=== PATIENT | female | born 2000 | race Caucasian/White ===

== ENCOUNTER 2022-03-06 21:51 | Emergency (ER) | payer SELFPAY ==
--- NOTE | 2022-03-06 22:01 | ED Abdominal Pain ---
General Stated Complaint: MENSTRUAL BLEEDING Source of Information: Patient Exam Limitations: No Limitations History of Present Illness Date Seen by Provider: Mar 06, 2022 Time Seen by Provider: 21:52 Initial Comments [id number] female with no pertinent past medical history coming in due to lower abdominal pain and vaginal bleeding. She states that mucosa is rather dry, and she was attempting to have intercourse, he was painful, afterwards had vaginal bleeding and lower abdominal pain. Has not taken anything for it as of yet. Is been going on for over an hour. LMP was 3 weeks ago. Had pain similar to this roughly a month ago and had a CT scan and was told she had "swollen lymph nodes". She states its not uncommon for her to have abdominal pain similar to this. Denies any dysuria, nausea, vomiting, diarrhea, weakness, numbness, chest pain, shortness of breath, or any other concerns Allergies and Home Medications Allergies Coded Allergies: No Known Drug Allergies (Unverified , 03/06/22) Patient Home Medication List Home Medication List Reviewed: Yes Review of Systems Review of Systems Constitutional: No fever EENTM: No Symptoms Reported Respiratory: No Symptoms Reported Cardiovascular: No Symptoms Reported Gastrointestinal: See HPI Genitourinary: See HPI Musculoskeletal: no symptoms reported Skin: no symptoms reported Psychiatric/Neurological: No Symptoms Reported Endocrine: No Symptoms Reported Hematologic/Lymphatic: No Symptoms Reported All Other Systems Reviewed Negative Unless Noted: Yes Past [id number] Hx Patient Social History Alcohol Use?: Yes Past Medical History Surgeries: No Physical Exam Vital Signs Vital Signs - First Documented 03/06/22 21:51 Pulse 77 Resp 18 B/P (MAP) 158/87 (110) Pulse Ox 99 O2 Delivery Room Air Capillary Refill : Height/Weight/BMI Height: '" Weight: lbs. oz. kg; BMI Method: General Appearance: WD/WN, no apparent distress HEENT: PERRL/EOMI, normal ENT inspection, pharynx normal Neck: non-tender, full range of motion, supple, normal inspection Respiratory: chest non-tender, lungs clear, normal breath sounds, no respiratory distress Cardiovascular: regular rate, rhythm, no edema, no murmur Gastrointestinal: normal bowel sounds, soft; No distended, No guarding, No rebound; tenderness Genital/Rectal: other (No adnexal tenderness, cervical os is closed with minimal amount of bleeding) Extremities: normal range of motion, non-tender, normal inspection, no pedal edema, no calf tenderness, normal capillary refill Back: normal inspection, no CVA tenderness, no vertebral tenderness Neurologic/Psychiatric: no motor/sensory deficits, alert, normal mood/affect Skin: normal color, warm/dry Lymphatic: no adenopathy Progress/Results/Core Measures Results/Orders Lab Results Laboratory Tests Test 03/06/22 22:00 Range/Units White Blood Count 7.1 4.3-11.0 10^3/uL Red Blood Count 4.16 3.80-5.11 10^6/uL Hemoglobin 12.3 11.5-16.0 g/dL Hematocrit 35 35-52 % Mean Corpuscular Volume 84 80-99 fL Mean Corpuscular Hemoglobin 30 25-34 pg Mean Corpuscular Hemoglobin Concent 35 32-36 g/dL Red Cell Distribution Width 12.3 10.0-14.5 % Platelet Count 251 130-400 10^3/uL Mean Platelet Volume 10.0 9.0-12.2 fL Immature Granulocyte % (Auto) 0 % Neutrophils (%) (Auto) 62 42-75 % Lymphocytes (%) (Auto) 26 12-44 % Monocytes (%) (Auto) 9 0-12 % Eosinophils (%) (Auto) 4 0-10 % Basophils (%) (Auto) 1 0-10 % Neutrophils # (Auto) 4.4 1.8-7.8 10^3/uL Lymphocytes # (Auto) 1.8 1.0-4.0 10^3/uL Monocytes # (Auto) 0.6 0.0-1.0 10^3/uL Eosinophils # (Auto) 0.3 0.0-0.3 10^3/uL Basophils # (Auto) 0.0 0.0-0.1 10^3/uL Immature Granulocyte # (Auto) 0.0 0.0-0.1 10^3/uL Urine Color YELLOW Urine Clarity CLOUDY Urine pH 7.5 5-9 Urine Specific [place] 1.020 1.016-1.022 Urine Protein NEGATIVE NEGATIVE Urine Glucose (UA) NEGATIVE NEGATIVE Urine Ketones NEGATIVE NEGATIVE Urine Nitrite NEGATIVE NEGATIVE Urine Bilirubin NEGATIVE NEGATIVE Urine Urobilinogen 0.2 < = 1.0 MG/DL Urine Leukocyte Esterase NEGATIVE NEGATIVE Urine RBC (Auto) 3+ H NEGATIVE Urine RBC >100 H /HPF Urine WBC NONE /HPF Urine Squamous Epithelial Cells 10-25 H /HPF Urine Crystals NONE /LPF Urine Bacteria NEGATIVE /HPF Urine Casts NONE /LPF Urine Mucus NEGATIVE /LPF Urine Culture Indicated NO Urine Test POSITIVE NEGATIVE Sodium Level 134 L 135-145 MMOL/L Potassium Level 4.1 3.6-5.0 MMOL/L Chloride Level 99 98-107 MMOL/L Carbon Dioxide Level 23 21-32 MMOL/L Anion Gap 12 5-14 MMOL/L Blood Urea Nitrogen 9 7-18 MG/DL Creatinine 0.67 0.60-1.30 MG/DL Estimat Glomerular Filtration Rate 127 BUN/Creatinine Ratio 13 Glucose Level 101 70-105 MG/DL Calcium Level 9.5 8.5-10.1 MG/DL Corrected Calcium 9.2 8.5-10.1 MG/DL Total Bilirubin 0.2 0.1-1.0 MG/DL Aspartate Amino Transf (AST/SGOT) 16 5-34 U/L Alanine Aminotransferase (ALT/SGPT) 12 0-55 U/L Alkaline Phosphatase 58 40-136 U/L C-Reactive Protein 0.85 H <0.50 MG/DL Total Protein 7.5 6.4-8.2 GM/DL Albumin 4.4 3.2-4.5 GM/DL Lipase 32 8-78 U/L My Orders Orders - RED KAMINSKI MD Cbc With Automated Diff (03/06/22 22:06) Comprehensive Metabolic Panel (03/06/22 22:06) Hcg,Qualitative Urine (03/06/22 22:06) Lipase (03/06/22 22:06) Ua Culture If Indicated (03/06/22 22:06) Crp Fs (03/06/22 22:06) Ed Iv/Invasive Line Start (03/06/22 22:09) Hcg,Quantitative (03/06/22 22:20) Acetaminophen Tablet (Tylenol Tablet) (03/06/22 22:30) Medications Given in ED Current Medications Medications Dose Ordered Sig/Vale Route Start Time Stop Time Status Last Admin Dose Admin Acetaminophen 1,000 mg ONCE ONCE PO 03/06/22 22:30 03/06/22 22:32 DC 03/06/22 22:35 1,000 MG Vital Signs/I&O 03/06/22 21:51 Pulse 77 Resp 18 B/P (MAP) 158/87 (110) Pulse Ox 99 O2 Delivery Room Air Progress Progress Note : Progress Note 21-year-old female with above history coming in due to vaginal bleeding and lower abdominal discomfort. ABCs were intact and vitals were stable on presentation. She has very mild suprapubic tenderness but no adnexal tendern ess. test was positive. I did a [id number] ultrasound confirming intrauterine . Hemoglobin within normal limits. On exam she does have a closed cervical os with minimal bleeding. I discussed that this is a threatened miscarriage at this time. I will order an outpatient transvaginal ultrasound for her. She lives in [place] and will be driving back home this weekend. Departure Impression Primary Impression: Threatened miscarriage Disposition: HOME, SELF-CARE Condition: Stable Departure-Patient Inst. Decision time for Depature: 22:50 Referrals: PAVEL ESTRADA DDS (PCP) Primary Care Physician Patient Instructions: Bleeding in Early ED Add. Discharge Instructions: You do look like you are early in based on ultrasound. You do need a formal ultrasound which can be done tomorrow in [place], [place]. Call the number on the form to ask when you should go in. It is possible the bleeding could increase significantly if you do continue to miscarry. If you fully saturate a large pad every hour for several hours then I would want you to come back to the ER. Take Tylenol as needed for pain. RED KAMINSKI MD Mar 06, 2022 22:01
[2022-03-06 22:10] LABS: BASOPHILS % (AUTO) 1 % (0-10); EOSINOPHILS # (AUTO) 0.3 10^3/uL (0.0-0.3); EOSINOPHILS % (AUTO) 4 % (0-10); HEMATOCRIT 35 % (35-52); HEMOGLOBIN 12.3 g/dL (11.5-16.0); LYMPHOCYTES # (AUTO) 1.8 10^3/uL (1.0-4.0); LYMPHOCYTES % (AUTO) 26 % (12-44); MEAN CORPUSCULAR HEMOGLOBIN 30 pg (25-34); MEAN CORPUSCULAR HGB CONC 35 g/dL (32-36); MEAN CORPUSCULAR VOLUME 84 fL (80-99); MONOCYTES # (AUTO) 0.6 10^3/uL (0.0-1.0); MONOCYTES % (AUTO) 9 % (0-12); NEUTROPHILS # (AUTO) 4.4 10^3/uL (1.8-7.8); NEUTROPHILS % (AUTO) 62 % (42-75); PLATELET COUNT 251 10^3/uL (130-400); WHITE BLOOD COUNT 7.1 10^3/uL (4.3-11.0)
[2022-03-06 22:13] LABS: BILIRUBIN,URINE NEGATIVE (NEGATIVE); COLOR,URINE YELLOW; GLUCOSE, URINE (UA) NEGATIVE (NEGATIVE); KETONES,URINE NEGATIVE (NEGATIVE); LEUKOCYTE ESTERASE ,URINE NEGATIVE (NEGATIVE); NITRITE,URINE NEGATIVE (NEGATIVE); PH,URINE 7.5 (5-9); PROTEIN,URINE NEGATIVE (NEGATIVE)
[2022-03-06 22:15] LABS: CLARITY,URINE CLOUDY
[2022-03-06] MEDS ORDERED: KETOROLAC 15 MG/ML VIAL IVP ONE (22:15)
[2022-03-06 22:16] LABS: BACTERIA,URINE NEGATIVE /HPF; RBC,URINE >100 /HPF
[2022-03-06 22:30] LABS: ALBUMIN 4.4 GM/DL (3.2-4.5); BILIRUBIN,TOTAL 0.2 MG/DL (0.1-1.0); CALCIUM 9.5 MG/DL (8.5-10.1); CREATININE SERUM 0.67 MG/DL (0.60-1.30); POTASSIUM 4.1 MMOL/L (3.6-5.0); TOTAL PROTEIN 7.5 GM/DL (6.4-8.2)
[2022-03-06] MEDS ORDERED: ACETAMINOPHEN 500 MG TAB (TYLENOL) PO ONE (22:30)
[2022-03-06 22:46] VITALS: BP 158/87
== END 2022-03-06 22:46 | disposition home or self-care (01) ==
LOC: EDUNIT# 21:51 → ER FS 21:53
DX: O20.0 Threatened abortion (principal); Z3A.00 Weeks of gestation of pregnancy not specified
CPT/HCPCS: 36415; 80053; 81000; 83690; 84702; 84703; 85025; 86141; 99284